=== PATIENT | female | born 1990 | race African-American/Black ===

== ENCOUNTER 2021-05-11 08:33 | Emergency (ER) | payer OTHER ==
[~2021-05-11] VITALS: Ht 177.8 cm; Wt 88.6 kg
[2021-05-11] MEDS ORDERED: IBUPROFEN 600 MG TABLET PO ONE (09:00)
[2021-05-11 09:46] VITALS: BP 115/70
== END 2021-05-11 09:48 | disposition home or self-care (01) ==
LOC: EMS 08:37
DX: M25.511 Pain in right shoulder (principal); F17.210 Nicotine dependence, cigarettes, uncomplicated
CPT/HCPCS: 71045; 93005; 99283